=== PATIENT | male | born 1980 | race African-American/Black ===

== ENCOUNTER 2016-03-22 09:48 | Emergency (ER) | payer OTHER, SELFPAY ==
--- NOTE | 2016-03-22 10:20 | ERRECORD ---
[facility] EMERGENCY RECORD PAST MEDICAL HISTORY (09:56 LGIB) MEDICAL HISTORY: No past medical history, Flu vaccine not up to date, Tetanus immunization up to date, Pneumococcal vaccine not up to date. MALE SURGICAL HISTORY: Patient has no surgical history. PSYCHIATRIC HISTORY: No previous psychiatric history. SOCIAL HISTORY: Patient drinks socially, Patient currently uses drugs, abuses marijuana, Patient currently uses tobacco, smokes cigarettes, Patient smokes 1 pack per day. KNOWN ALLERGIES No Known Allergies CURRENT MEDICATIONS (09:58 LGIB) None VITAL SIGNS (09:57 LGIB) VITAL SIGNS: BP: 128/85, Pulse: 62, Resp: 16 (Non-Labored), Temp: 97.5 (Oral), Pain: 7, O2 sat: 100 on Room Air, Time: 03/22/2016 09:57. PROBLEM LIST No recorded problems DIAGNOSIS (10:05 MBRI) FINAL: PRIMARY: paresthesia LEFT hand - likely carpal tunnel syndrome. PRESCRIPTION (10:04 MBRI) Motrin: TABLET : 800 mg : ORAL : Quantity: 1 Unit: tab(s) Route: ORAL Schedule: every 8 hours PRN Dispense: 30 May substitute. Refills: No Refills . NOTES: No refills. DISPOSITION PATIENT: Disposition Type: Discharge, Disposition: *Discharge Home. (10:05 MBRI) Patient left the department. (10:11 LGIB) Gan: LGIB=ANKUR Monzon, Komal MBRI=DO Snyder Matthew &a-1R&a+25V*p+0X*r1561D*c202B*c15G*c2P*p-0X&a-25V&a+1R Name: Vasiliy Kyle : 1980 M35 MedRec: [id number] AcctNum: [id number] Prepared: TueMar 22, 2016 10:15 by Interface Page 1 of 1 pMD MTDD
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
== END 2016-03-22 10:11 | disposition home or self-care (01) ==
LOC: BURERS 09:48
DX: R20.9 Unspecified disturbances of skin sensation (principal); F17.210 Nicotine dependence, cigarettes, uncomplicated
CPT/HCPCS: 99283

== ENCOUNTER 2016-06-01 12:11 | Emergency (ER) | payer OTHER | END 2016-06-01 12:46 | disposition home or self-care (01) | LOC: BURERS 12:11 | DX: G56.03 Carpal tunnel syndrome, bilateral upper limbs (principal); F17.210 Nicotine dependence, cigarettes, uncomplicated | CPT/HCPCS: 36416; 99283 ==

== ENCOUNTER 2021-07-08 13:15 | Emergency (ER) | payer OTHER, SELFPAY | END 2021-07-08 13:56 | disposition home or self-care (01) | LOC: BURERS 13:15 | DX: M62.838 Other muscle spasm (principal); F17.210 Nicotine dependence, cigarettes, uncomplicated | CPT/HCPCS: 99283 ==

== ENCOUNTER 2021-09-18 12:48 | Emergency (ER) | payer SELFPAY | END 2021-09-18 14:00 | disposition home or self-care (01) | LOC: BURERS 12:48 | DX: M65.4 Radial styloid tenosynovitis [de Quervain] (principal); F17.210 Nicotine dependence, cigarettes, uncomplicated | CPT/HCPCS: 99283 ==

== ENCOUNTER 2021-11-04 11:30 | Emergency (ER) | payer SELFPAY | END 2021-11-04 12:20 | disposition home or self-care (01) | LOC: BURERS 11:30 | DX: U07.1 COVID-19 (principal); M65.4 Radial styloid tenosynovitis [de Quervain]; F17.210 Nicotine dependence, cigarettes, uncomplicated | CPT/HCPCS: 99283; U0003; U0005 ==

== ENCOUNTER 2021-12-22 12:59 | Emergency (ER) | payer SELFPAY | END 2021-12-22 14:00 | disposition home or self-care (01) | LOC: BURERS 12:59 | DX: M77.11 Lateral epicondylitis, right elbow (principal); F17.210 Nicotine dependence, cigarettes, uncomplicated ==

== ENCOUNTER 2022-04-21 15:15 | Emergency (ER) | payer SELFPAY | END 2022-04-21 15:34 | disposition home or self-care (01) | LOC: BURERS 15:15 | DX: H61.21 Impacted cerumen, right ear (principal); F17.210 Nicotine dependence, cigarettes, uncomplicated | CPT/HCPCS: 99282 ==